=== PATIENT | male | born 1965 | race Caucasian/White ===

== ENCOUNTER 2016-10-25 03:02 | Inpatient (IN) | payer OTHER ==
[~2016-10-25] VITALS: Ht 185.4 cm; Wt 118.8 kg
--- NOTE | 2016-10-25 07:56 | Admission Core Measures ---
Admission Meds I reviewed the following Meds: Current Medications Sig/Prakash Start time Last Medication Dose Stop Time Status Admin Clindamycin 900 MG ONCE 10/25 NR (Cleocin) 10/25 2358 Dextrose/Water 50 ML (D5W) Heparin Sodium 5,000 UNIT ONCE 10/25 NR (Porcine) 10/25 2358 (Heparin Bolus) Acute Coronary Syndrome Inclusion Criteria ACS Diagnosis No Inpatient Core Measures LDL Reminder: If No, please order W/I first 24hr of stay Congestive Heart Failure Inclusion Criteria CHF Diagnosis No Cerebrovascular accident Inclusion Criteria CVA/TIA Diagnosis No Inpatient Core Measures Bedside Swallow Eval Reminder: If BSE failed, place ST order Antithrombotic Reminder: Order Antithrombotic Medication by end of day 2 Antithrombotic Reminder: Document Reason Antithrombotic Not ordered by end of day 2 AFIB/Flutter Reminder: If Present, add to problem list AFIB/Flutter Reminder: Order Anticoag Medication for pts with AFIB/Flutter Atherosclerosis Reminder: If Present, add to problem list LDL Reminder: If No, please order W/I first 24hr of stay PT Order Reminder: If No, please order Venous thromboembolism Inpatient Core Measures VTE Risk Factors: Age > 40, Obesity, Surgery VTE Prophylaxis Ordered Inpt Mech & Pharm No Mech VTE prophylaxis d/t No contraindications No VTE Pharm Prophylaxis d/t No contraindications Inclusion Criteria - Per Current guidelines, there needs to be overlap - treatment for the first 5 days of Warfarin therapy. - Parenteral Anticoagulation (IV or SC) needs to be - given along with Warfarin therapy. VTE Diagnosis No VTE Type NONE VTE Confirmed by (Test) NONE Problem List As ranked by this Provider includes Assessment & Plan 1. S/P laparoscopic sleeve gastrectomy
--- NOTE | 2016-10-25 10:05 | Operative Report ---
Operative/Inv Procedure Report Surgery Date: 10/25/16 Name of Procedure: Laparoscopic Sleeve Gastrectomy, Laparoscopic Hiatal hernia repair Pre-Operative Diagnosis: Morbid Obesity BMI 38, DERRICK Post-Operative Diagnosis: Morbid Obesity BMI 38, DERRICK, Hiatal hernia Estimated Blood Loss: less than 50ml Surgeon/Wire Temperer: ROGER GIL DO, MD Anesthesia: general endotracheal tube IV Fluids: 1800 cc Drains: 10 Fr RUQ OLGA Drain Specimens: Stomach Complications: none Condition: Stable Operative Indication: This is a 51-year-old male that presented to the office for workup for bariatric surgery. After appropriate workup was completed we discussed with the patient the band, the sleeve, and the gastric bypass. The patient chose to undergo a sleeve gastrectomy. All risks including but not limited to bleeding, infection, leak, stricture, injury to surrounding bowel/esophagus/stomach/liver/spleen, long-term reflux, DVT/PE, and mortality of 09/999 patients were discussed in detail. The patient understood everything and decided to proceed. Operative/Procedure Note Note: The patient was brought to the operating room and placed on the operating room table in supine position. Venodyne stockings were placed and adequate general endotracheal anesthesia was obtained. The patient was prepped and draped in standard surgical fashion. Began the procedure by making a 2 cm transverse incision supraumbilically and slightly to the left of the midline. Then using a 12 mm clear Visiport and a 10 mm 0 laparoscope, the abdominal cavity was accessed. Great care was taken to go through the anterior rectus sheath, the posterior rectus sheath, and through the peritoneum. Once we entered the peritoneum the abdominal cavity was insufflated to 15 mmHg. Upon initial examination no obvious gross pathology was seen. Accessory trocars were placed, 5 mm in the epigastrium for the Arvin liver retractor. The retractor was inserted and the liver was retracted anteriorly exposing the hiatus, small hiatal hernia was seen. 5 mm ports were placed in the right and left upper quadrant, a 5 mm left lateral port, and a 15 mm right lateral port. Began the procedure by mobilizing the greater curvature of the stomach approximately 7 cm from the pylorus. Once the retrogastric space was reached the whole greater curvature was mobilized maintaining hemostasis using Harmonic scalpel. Full hiatal dissection was performed, a small hiatal hernia was seen. The left stephanie of the diaphragm was dissected away from the esophagus, reducing the hernia sac. We then brought our attention to the right stephanie, the pars flaccida was opened until the right stephanie was clearly visualized. Following this the right stephanie was dissected away from the esophagus as well and the esophagus was circumferentially dissected out of the chest. At the completion of dissection the esophagus was in the abdominal cavity for about 2-3 cm. The esophagus was retracted anteriorly and the hiatus was closed using 2-0 Tycron suture. At the completion of the closure there was ample room for the esophagus and the hiatus was adequately closed. Posterior adhesions were taken down using Harmonic scalpel as well. Once the stomach was adequately mobilized a 38 [place]i bougie was inserted and placed along the lesser curvature of the stomach. Once the bougie was in the appropriate position will began creating our sleeve, two 60 mm black staple loads with seamguard followed by three 60 mm purple staple loads with seamguard and finished with a 45 mm purple load with seamguard as well. Great care was taken to leave ample room at the incisura angularis, to prevent any twisting or kinking of the sleeve, to stay lateral to the esophagogastric fat pad, and to do a full fundal excision. At the completion of the staple line the staple line was examined, it appeared intact and some bleeding was noted at the distal staple line which was controlled using endoclips. The bougie was removed, the sleeve was lying nicely without any twisting or kinking. The resected stomach was removed through the right lateral port site. The port and the left upper quadrant were irrigated until clear. A 10 [place]i OLGA drain was placed through the right upper quadrant incision under the liver and over the spleen. All ports were removed under direct visualization no obvious bleeding was noted. The 15 mm port site fascia was closed using 0 Vicryl suture. The skin was closed using 4-0 Monocryl. Steri-Strips and dressings were placed. The patient was successfully extubated and transferred to the recovery room in stable condition. The patient tolerated the procedure well with no complications. Findings: 3-4 cm Hiatal hernia, 38 Fr Bougie CC: NAE WATERS,LILLIE
[2016-10-25 11:20] VITALS: BP 142/78
--- NOTE | 2016-10-25 13:04 | PN- Bariatrics ---
Subjective Subjective: Reports some nausea. Taking stage 1 diet ok. Not yet out of bed. Denies dizziness. No shortness of breath. No chest pains. Voided without difficulty already. Objective Vital Signs and I&Os Vital Signs Date Time Temp Pulse Resp B/P Pulse O2 O2 Flow FiO2 Ox Delivery Rate 10/25 1120 98.2 90 20 142/78 98 Room Air 10/25 1120 98 Room Air Intake & Output 10/25 1600 10/25 0810/25 0000 10/24 1600 10/24 0800 10/24 0000 Intake Total Output Total 400 Balance -400 Output, Urine 400 Patient 262 lb Weight Physical Exam: General - alert & oriented x 3. comfortable. no acute distress. Lungs - clear bilaterally. no w/r/r. Cardiac - s1s2. reg. Abdomen - soft. dressings c/d/i. OLGA drain with scant bloody drainage. Extremities - warm bilaterally. no c/c/e. calves soft and nontender b/l. venodynes active b/l. Assessment/Plan Assessment/Plan This 51 year old white male with history of morbid obesity (bmi 38), and sleep apnea is POD#0 s/p laparoscopic sleeve gastrectomy, hiatal hernia repair stg 1 diet until midnight, then npo possible upper gi study in the morning pain control as ordered lovenox teaching for home oob/ambulation protonix - gi ppx monitor OLGA drain outpu f/u labs d/c planning for 1-2 days will d/w Core Measures/Miscellaneous Venous Thromboembolism VTE Risk Factors: Age > 40, Obesity, Surgery VTE Contraindications: No Contraindications VTE Prophylaxis Ordered Inpt: Mech & Pharm VTE Diagnosis: No VTE Type: NONE VTE Confirmed by (Test): NONE Beta Leah Is Beta Leah a Home Med? No Antibiotics Is Patient on Antibiotics? Yes
[2016-10-25] MEDS ORDERED: LOVENOX40 MG/0.1 SC (13:48)
[2016-10-25] MEDS ORDERED: HYCET 7.5 MG-3473 ML PO (13:49)
[2016-10-25] MEDS ORDERED: PROTONIX40 M3 PO (13:49)
--- NOTE | 2016-10-25 13:53 | Patient Discharge Instructions ---
Discharge Instructions General Discharge Information You were seen/treated for: Surgery Date: 10/25/16 Morbid Obesity BMI 38, DERRICK, Hiatal hernia You had these procedures: Surgery Date: 10/25/16 Name of Procedure: Laparoscopic Sleeve Gastrectomy, Laparoscopic Hiatal hernia repair Watch for these problems: fever>101.3, increased pain, redness/swelling/drainage No bath, but you may shower: Yes Other wound care: ok to remove outer dressings. leave white steri strips in place. ok to shower. keep incisions clean & dry. expect some continued drainage from drain site. dry guaze dressing change for drain site is ok until the drainage stops. Diet Continue normal diet: No Recommended Diet: Bariatric Activity Full Activity/No Limits: No Activity Self Limited: Yes Pounds, do NOT lift more than: 10 Other activity limits: no heavy lifting (>10 lbs) no strenuous activity Additional ACTIVITY Info: continue to walk frequently Acute Coronary Syndrome Inclusion Criteria At DC or during hospital stay patient has or had the following: ACS DIAGNOSIS No Discharge Core Measures Meds if any: Prescribed or Continued at Discharge Meds if any: NOT Prescribed or Continued at Discharge Congestive Heart Failure Inclusion Criteria At DC or during hospital stay patient has or had the following: CHF DIAGNOSIS No Discharge Core Measures Meds if any: Prescribed or Continued at Discharge Meds if any: NOT Prescribed or Continued at Discharge Cerebrovascular accident Inclusion Criteria At DC or during hospital stay patient has or had the following: CVA/TIA Diagnosis No Discharge Core Measures Meds if any: Prescribed or Continued at Discharge Meds if any: NOT Prescribed or Continued at Discharge Venous thromboembolism Inclusion Criteria VTE Diagnosis No VTE Type NONE VTE Confirmed by (Test) NONE Discharge Core Measures - Per Current guidelines, there needs to be overlap - treatment for the first 5 days of Warfarin therapy. - If discharged on Warfarin prior to 5 days of - overlap therapy, the patient will need to be - assessed for post discharge needs including - *Post discharge parental anticoagulation - *Warfarin and/or parental anticoagulation education - *Follow up date to check INR post discharge At least 5 days overlap therapy as Inpatient No Meds if any: Prescribed or Continued at Discharge Note: Overlap Therapy is Warfarin and Anticoagulant Meds if any: NOT Prescribed or Continued at Discharge
--- NOTE | 2016-10-25 13:57 | Surg Short-stay <48hrs Dis Sum ---
Visit Information Visit Dates Admission Date: 10/25/16 Discharge Date: 10/27/16 Surgical Short Stay DC Summary Admission Diagnosis: Morbid Obesity BMI 38, DERRICK Final Diagnosis: Morbid Obesity BMI 38, DERRICK, Hiatal hernia Procedure(s): Surgery Date: 10/25/16 Name of Procedure: Laparoscopic Sleeve Gastrectomy, Laparoscopic Hiatal hernia repair Summary/Significant Findings: Electrively scheduled laparoscopic sleeve gastrectomy and hiatal hernia repair performed by on 10/25/16. Routine post-operative course. OLGA drain removed prior to discharge to home. Lovenox teaching done prior to discharge, for continued home prophylaxis. Tolerating stage 1 diet, and pain controlled with liquid hycet. Condition at Discharge: stable Discharge Disposition: home or self care Discharge instructions provided to patient/family: Yes Post discharge follow-up plan: one week follow up see pre-printed discharge instructions
[2016-10-25 16:10] VITALS: BP 150/72
[2016-10-26 00:29] VITALS: BP 128/70
--- NOTE | 2016-10-26 07:00 | PN- Bariatrics ---
See Addendum Subjective Subjective: The patient seen this morning postoperatively day #1. He reports that his pain is under adequate control and was tolerating a stage I diet until midnight without nausea. He has no other complaints at the current time. Objective Vital Signs and I&Os Vital Signs Date Time Temp Pulse Resp B/P Pulse O2 O2 Flow FiO2 Ox Delivery Rate 10/26 0600 Room Air 10/26 0029 98.6 71 20 128/70 95 10/25 1959 Room Air 10/25 1610 97.6 88 20 150/72 96 10/25 1406 Room Air Room Air 10/25 1120 98.2 90 20 142/78 98 Room Air 10/25 1120 98 Room Air Intake & Output 10/26 0000 10/25 1600 10/25 0810/25 0000 / 1600 Intake Total 1020 500 615 Output Total 855 640 420 Balance 165 -140 195 Intake, IV 1000 500 375 Intake, Oral 20 240 Number 0 Bowel Movements Output, 30 40 20 Drainage Output, Urine 825 600 400 Patient 262 lb Weight Physical Exam: Gen.: Alert and obvious distress Skin: Warm and dry Abdomen: Soft, obese, appropriate strength, bowel sounds positive. Port sites are blood tinged but otherwise intact. He has a OLGA 1 holding suction with serosanguineous drainage in the bulb. Extremities: Bilateral lower extremities are warm without calf tenderness or edema Assessment/Plan Assessment/Plan Assessment: 51-year-old male status post laparoscopic sleeve gastrectomy postoperative day #1. The patient is progressing as expected, his pain is under adequate control and he is without nausea. Plan: Decrease IV fluids to 75 ML's/hr Cancel upper GI series and begin a stage I diet Follow-up morning laboratory studies Out of bed and ambulate Keep OLGA to self suction GI and DVT prophylaxis Lovenox education Core Measures/Miscellaneous Venous Thromboembolism VTE Risk Factors: Age > 40, Obesity, Surgery VTE Contraindications: No Contraindications VTE Prophylaxis Ordered Inpt: Mech & Pharm VTE Diagnosis: No VTE Type: NONE VTE Confirmed by (Test): NONE Beta Leah Is Beta Leah a Home Med? No Antibiotics Is Patient on Antibiotics? No
[2016-10-26 07:47] VITALS: BP 140/81
[2016-10-26 08:50] LABS: ABSOLUTE BASOPHIL COUNT 0 /CUMM (0.0-0.2); ABSOLUTE EOSINOPHIL COUNT 0 /CUMM (0.0-0.7); ABSOLUTE GRANULOCYTE CT 6.8 /CUMM (1.4-6.5); ABSOLUTE LYMPH COUNT 0.9 /CUMM (1.2-3.4); ABSOLUTE MONOCYTE COUNT 0.8 /CUMM (0.10-0.60); BASOPHIL % 0.2 % (0.0-2.0); EOSINOPHIL % 0 % (0-5); GRANULOCYTE % 79.5 % (42.2-75.2); HEMATOCRIT 38.9 % (42-52); MEAN CORPUSCULAR HGB 30.7 PG (27.0-31.0); MEAN CORPUSCULAR HGB CONC 33.9 G/DL (33.0-37.0); MEAN CORPUSCULAR VOLUME 90.6 FL (80.0-94.0); MEAN PLATELET VOLUME 9.3 FL (7.4-10.4); PLATELET COUNT 131 /CUMM (130-400); RBC DISTRIBUTION WIDTH 12.8 % (11.5-14.5); WHITE BLOOD CELL COUNT 8.5 /CUMM (4.8-10.8)
[2016-10-26 16:13] VITALS: BP 148/88
[2016-10-26 23:33] VITALS: BP 140/89
--- NOTE | 2016-10-27 07:06 | PN- Bariatrics ---
Subjective Subjective: Reports some intermittent nausea, but drinking well. Ambulating without difficulty. No dizziness. No shortness of breath. No chest pains. Voiding well. Passing flatus but no bm yet. Objective Vital Signs and I&Os Vital Signs Date Time Temp Pulse Resp B/P Pulse O2 O2 Flow FiO2 Ox Delivery Rate 10/27 0600 Room Air 10/26 2333 98.3 52 18 140/89 96 Room Air 10/26 2200 98 Room Air 10/26 1613 97.7 70 18 148/88 96 10/26 1400 96 Room Air 10/26 0747 98.2 61 20 140/81 95 Room Air Intake & Output 10/27 0800 10/27 0000 10/26 1600 10/26 0800 10/26 0000 10/25 1600 Intake Total 720 1100 1350 1020 500 615 Output Total 330 480 675 855 640 420 Balance 390 620 675 165 -140 195 Intake, IV 600 249 112 1318 500 375 Intake, Oral 120 500 750 20 240 Number 0 0 Bowel Movements Output, 30 30 25 30 40 20 Drainage Output, Urine 300 450 650 825 600 400 Patient 262 lb Weight Physical Exam: General - alert & oriented x 3. comfortable. no acute distress. Lungs - clear bilaterally. no w/r/r. Cardiac - s1s2. reg. Abdomen - soft. morris-incisional tenderness, as expected. OLGA drain with serosang drainage. Extremities - warm bilaterally. no c/c/e. calves soft and nontender b/l. Assessment/Plan Assessment/Plan This 51-year-old male is POD#2 s/p sleeve gastrectomy with some postoperative nausea. Tolerating stage 1 bariatric diet Pain controlled oob/ambulating well OLGA drain removed try decadron 10 mg x 1 for nausea try dulcolax x 1 lovenox teaching done, to continue injections at home protonix - gi ppx d/c home today d/w Core Measures/Miscellaneous Venous Thromboembolism VTE Risk Factors: Age > 40, Obesity, Surgery VTE Contraindications: No Contraindications VTE Prophylaxis Ordered Inpt: Mech & Pharm VTE Diagnosis: No VTE Type: NONE VTE Confirmed by (Test): NONE Beta Leah Is Beta Leah a Home Med? No Antibiotics Is Patient on Antibiotics? No
[2016-10-27 07:56] VITALS: BP 138/80
== END 2016-10-27 10:37 | DRG 621 ==
LOC: ENRESERVDT → ENRESERVTM → SDA 03:02 → ENPENDDIS 03:02 → 2NB 11:33
PROVIDERS: Physician Assistant Surgical; ADMIT Surgery
PROC: 0BQR4ZZ (ICD-10-PCS; principal; 2016-10-25)
PROC: 0BQS4ZZ (ICD-10-PCS; principal; 2016-10-25)
PROC: 0DB64Z3 Excision of Stomach, Percutaneous Endoscopic Approach, Vertical (ICD-10-PCS; principal; 2016-10-25)
DX: E66.01 Morbid (severe) obesity due to excess calories (principal); G47.33 Obstructive sleep apnea (adult) (pediatric); Z68.38 Body mass index [BMI] 38.0-38.9, adult; K44.9 Diaphragmatic hernia without obstruction or gangrene
CPT/HCPCS: 2NBP; 36415; 82436; 88307; J0131; J1100; J1170; J1644; J1650; J1885; J2250; J2405; J3010; J7042; S5012